=== PATIENT | female | born 1950 | race Caucasian/White ===

== ENCOUNTER 2023-02-03 10:10 | Outpatient (RCR) | payer MEDICARE, OTHER, SELFPAY | END 2023-03-30 16:00 | disposition home or self-care (01) | LOC: HO.WCC 10:10 | PROVIDERS: PCP Internal Medicine; Visit Provider Surgery | DX: I87.331 Chronic venous hypertension (idiopathic) with ulcer and inflammation of right lower extremity (principal); L97.812 Non-pressure chronic ulcer of other part of right lower leg with fat layer exposed; Z79.52 Long term (current) use of systemic steroids; Z79.899 Other long term (current) drug therapy | CPT/HCPCS: 11042; 11043; 15271; 99212; Q4187 ==

== ENCOUNTER 2023-04-19 13:32 | Outpatient (RCR) | payer MEDICARE, OTHER, SELFPAY | END 2023-04-29 16:00 | disposition home or self-care (01) | LOC: HO.WCC 13:32 | PROVIDERS: PCP Internal Medicine; Visit Provider Physician Assistant | DX: I87.311 Chronic venous hypertension (idiopathic) with ulcer of right lower extremity (principal); L97.812 Non-pressure chronic ulcer of other part of right lower leg with fat layer exposed; J44.9 Chronic obstructive pulmonary disease, unspecified; I10 Essential (primary) hypertension | CPT/HCPCS: 11042; 99212 ==